=== PATIENT | male | born 1960 | race Caucasian/White ===

== ENCOUNTER → 2019-07-20 | Outpatient (REF) | LOC: M LAB LCGH 11:28 | PROVIDERS: ATTEND Physician Assistant | DX: C44.319 Basal cell carcinoma of skin of other parts of face (principal) ==

== ENCOUNTER → 2023-09-14 | Outpatient (REF) | payer BC | LOC: M LAB REF 19:36 | PROVIDERS: ATTEND Physician Assistant | DX: D48.9 Neoplasm of uncertain behavior, unspecified (principal) ==

== ENCOUNTER → 2024-10-11 | Outpatient (REF) | payer MEDICARE | LOC: M SFHCDERM 09:45 | PROVIDERS: ATTEND Physician Assistant | DX: D48.9 Neoplasm of uncertain behavior, unspecified (principal); C44.319 Basal cell carcinoma of skin of other parts of face ==